=== PATIENT | female | born 1995 | race Caucasian/White ===

== ENCOUNTER 2017-11-09 06:03 | Day surgery (SDC) | payer BC ==
[~2017-11-09 06:03] MED LIST: Acetaminophen 325 MG Tab PO SCH; Lactated Ringers 1,000 ML IV SCH; Lidocaine 1%/Sod Bicarbonate in NS 8.4% 1 ML Syringe IDERM PRN; Pregabalin 25 MG Cap PO SCH; Sodium Chloride 0.9% 10 ML Syringe FLUSH PRN; oxyCODONE ER 10 MG TAB.ER PO SCH
[2017-11-09] MEDS ORDERED: fentaNYL 250 MCG/5 ML SDV ONE (06:31)
[2017-11-09] MEDS ORDERED: Propofol 200 MG/20 ML SDV ONE ×7 (06:31→08:12)
[2017-11-09] MEDS ORDERED: Midazolam 1 MG/ML 2 ML SDV ONE (06:31)
[2017-11-09] MEDS ORDERED: Ondansetron 4 MG/2 ML SDV ONE (06:33)
[2017-11-09] MEDS ORDERED: Lidocaine 1% 4 ML ONE (06:33)
[2017-11-09] MEDS ORDERED: Dexamethasone 4 MG/ML SDV ONE (06:33)
[2017-11-09] MEDS ORDERED: Rocuronium 50 MG/5 ML Vial ONE ×2 (06:33→08:03)
[2017-11-09] MEDS ORDERED: ceFAZolin 1 GM Vial ONE (06:34)
[2017-11-09] MEDS ORDERED: Scopolamine 1.5 MG Transdermal Patch TRDERM ONE (06:45)
--- NOTE | 2017-11-09 06:47 | PCM.PREANE ---
Preanesthetic Assessment - Procedure Proposed Procedure: Right Hip video arthroscopy - Anesthesia/Transfusion/Family Hx Anesthesia History: Prior Anesthesia Without Reaction Family History of Anesthesia Reaction: No Transfusion History: No Prior Transfusion(s) - Review of Systems General: No Symptoms Pulmonary: No Symptoms Cardiovascular: No Symptoms Gastrointestinal: No Symptoms Neurological: No Symptoms Other: Reports: Anxiety - Physical Assessment NPO Status Date: 11/08/17 NPO Status Time: 19:30 O2 Sat by Pulse Oximetry: 99 Respiratory Rate: 16 Vital Signs: Last Vital Signs Temp 36.6 C 11/09/17 06:10 Pulse 91 11/09/17 06:10 Resp 16 11/09/17 06:10 BP 124/80 11/09/17 06:10 Pulse Ox 99 11/09/17 06:10 Height: 1.78 m Weight: 66.224 kg ASA Class: 1 Mental Status: Alert & Oriented x3 Airway Class: Mallampati = 1 Dentition: Reports: Normal Dentition Thyro-Mental Finger Breadths: 3 Mouth Opening Finger Breadths: 3 ROM/Head Extension: Full Lungs: Clear to Auscultation, Normal Respiratory Effort Cardiovascular: Regular Rate, Regular Rhythm - Lab Values: Laboratory Last Values Urine HCG, Qual Negative (NEGATIVE) 11/09/17 06:05 MRSA (PCR) Negative 10/24/17 12:14 - Allergies Allergies/Adverse Reactions: Allergies Allergy/AdvReac Type Severity Reaction Status Date / Time watermelon Allergy Severe Anaphylactic Verified 11/08/17 13:27 Shock latex Allergy Rash Verified 11/08/17 13:27 Penicillins Allergy Hives Verified 11/08/17 13:27 thieves oil Allergy Anaphylactic Uncoded 11/08/17 13:27 Shock - Blood Blood Available: No Product(s) Available: None - Anesthesia Plan Pre-Op Medication Ordered: None - Acknowledgements Anesthesia Type Planned: General Anesthesia (scopolamine patch ordered, motion sickness) Pt an Appropriate Candidate for the Planned Anesthesia: Yes Alternatives and Risks of Anesthesia Discussed w Pt/Guardian: Yes Pt/Guardian Understands and Agrees with Anesthesia Plan: Yes PreAnesthesia Questionnaire Other HEENT History: lymphectomy right side Cardiovascular History: Reports: None Respiratory History: Reports: None Genitourinary History: Reports: None TOOL CHASER History: Reports: None Musculoskeletal History: Reports: None Neurological History: Reports: None Psychiatric History: Reports: Anxiety Endocrine/Metabolic History: Reports: None Hematologic History: Reports: None Immunologic History: Reports: None Oncologic (Cancer) History: Reports: None Dermatologic History: Reports: None - Infectious Disease History Infectious Disease History: Reports: Mumps - Past Surgical History Head Surgeries/Procedures: Reports: None Cardiovascular Surgical History: Reports: None Respiratory Surgical History: Reports: None GI Surgical History: Reports: Appendectomy Female Surgical History: Reports: None Male Surgical History: Reports: None Endocrine Surgical History: Reports: None Neurological Surgical History: Reports: None Musculoskeletal Surgical History: Reports: None Other Oncologic Surgeries/Procedures: She had a large lymph node apparently resected from the right side of her neck at age 10 months. Diagnosed with tuberculosis avium. She was living in [place] at the time - SUBSTANCE USE Smoking Status *Q: Never Smoker Recreational Drug Use History: No - HOME MEDS Home Medications: Home Meds Fluticasone Propionate [Flonase] 1 spray NASBOTH DAILY PRN 11/08/17 [History] Meloxicam [Mobic] 7.5 mg PO DAILY PRN 11/08/17 [History] Multivitamin [Daily Carol] 1 tab PO DAILY 11/08/17 [History] Norgestimate-Ethinyl Estradiol [Tri-Linyah Tablet] 1 tab PO DAILY 11/08/17 [ History] - CURRENT (IN HOUSE) MEDS Current Meds: Current Medications Acetaminophen (Tylenol) 975 mg PO ONETIME JONNIE Stop: 11/09/17 14:00 Last Admin: 11/09/17 06:44 Dose: 975 mg Epinephrine HCl (Adrenalin) 9 mg .XX ONETIME ONE Stop: 11/09/17 07:31 Lactated Ringer's (Ringers, Lactated) 1,000 mls @ 125 mls/hr IV ASDIRECTED JONNIE Stop: 11/09/17 23:00 Last Admin: 11/09/17 06:25 Dose: 125 mls/hr Lidocaine/Sodium Bicarbonate (Buffered Lidocaine 1% In Ns 8.4%) 0.25 ml IDERM ONETIME PRN PRN Reason: Prior to IV Start Stop: 11/09/17 18:00 Last Admin: 11/09/17 06:25 Dose: 0.25 ml Oxycodone HCl (Oxycontin) 10 mg PO ONETIME JONNIE Stop: 11/09/17 14:00 Last Admin: 11/09/17 06:44 Dose: 10 mg Pregabalin (Lyrica) 50 mg PO ONETIME JONNIE Stop: 11/09/17 14:00 Last Admin: 11/09/17 06:43 Dose: 50 mg Sodium Chloride (Saline Flush) 10 ml FLUSH ASDIRECTED PRN PRN Reason: Keep Vein Open Stop: 11/09/17 18:00 Discontinued Medications Bupivacaine HCl (Marcaine 0.25%) Confirm Administered Dose 30 ml .ROUTE .STK- MED ONE Stop: 11/09/17 06:16 Cefazolin Sodium (Ancef) Confirm Administered Dose 2 gm .ROUTE .STK-MED ONE Stop: 11/09/17 06:35 Dexamethasone (Dexamethasone) Confirm Administered Dose 4 mg .ROUTE .STK-MED ONE Stop: 11/09/17 06:34 Epinephrine HCl (Adrenalin) 3 mg .XX ONETIME ONE Stop: 11/09/17 08:01 Fentanyl (Sublimaze) Confirm Administered Dose 250 mcg .ROUTE .STK-MED ONE Stop: 11/09/17 06:32 Lidocaine HCl (Xylocaine-Mpf 1%) Confirm Administered Dose 4 mls @ as directed .ROUTE .STK-MED ONE Stop: 11/09/17 06:34 Midazolam HCl (Versed 1 Mg/Ml) Confirm Administered Dose 2 mg .ROUTE .STK-MED ONE Stop: 11/09/17 06:32 Ondansetron HCl (Zofran) Confirm Administered Dose 4 mg .ROUTE .STK-MED ONE Stop: 11/09/17 06:34 Propofol (Diprivan 20 Ml) Confirm Administered Dose 200 mg .ROUTE .STK-MED ONE Stop: 11/09/17 06:32 Rocuronium [place] (Zemuron) Confirm Administered Dose 50 mg .ROUTE .STK-MED ONE Stop: 11/09/17 06:34
[2017-11-09] MEDS ORDERED: EPINEPHrine 1 MG/ML 30 ML MDV ONE ×2 (07:30→08:00)
[2017-11-09] MEDS ORDERED: HYDROmorphone 0.5 MG/0.5 ML Syringe ONE ×2 (08:16)
[2017-11-09] MEDS: Bupivacaine 0.25% 30 ML SDV ONE ×2 (08:24→09:33)
[2017-11-09] MEDS ORDERED: Ketorolac 30 MG/ML SDV ONE (09:57)
--- NOTE | 2017-11-09 09:59 | CR ---
Right hip: Multiple fluoroscopic spot views were obtained utilizing the C-arm. Study shows arthroscopic surgery within the right hip. Fluoroscopy time given as 98.3 seconds. Impression: 1. Procedural study. Diagnostic code #2
[2017-11-09] MEDS ORDERED: Meperidine PF 50 MG/ML Syringe IVPUSH PRN (10:02)
[2017-11-09] MEDS ORDERED: fentaNYL 100 MCG/2 ML SDV IVPUSH PRN (10:02)
[2017-11-09] MEDS ORDERED: diphenhydrAMINE 50 MG/ML SDV IVPUSH PRN (10:02)
[2017-11-09] MEDS ORDERED: Ondansetron 4 MG/2 ML SDV IVPUSH PRN (10:02)
[2017-11-09] MEDS ORDERED: HYDROmorphone 0.5 MG/0.5 ML Syringe IVPUSH PRN (10:06)
--- NOTE | 2017-11-09 10:07 | PCM.POSTAN ---
POST ANESTHESIA ASSESSMENT - MENTAL STATUS Mental Status: Somnolent - VITAL SIGNS Pulse Rate: 72 SaO2: 97 Resp Rate: 13 Blood Pressure: 112/60 Temperature: 36.4 C - RESPIRATORY Respiratory Status: Respiratory Rate WNL, Airway Patent, O2 Saturation Stable, Supplemental Oxygen - CARDIOVASCULAR CV Status: Pulse Rate WNL, Blood Pressure Stable - GASTROINTESTINAL GI Status: No Symptoms - PAIN Pain Score: 0 - POST OP HYDRATION Hydration Status: Adequate & Stable
[2017-11-09 10:54] VITALS: BP 119/84
--- NOTE | 2017-11-09 21:39 | PCM.OPNOTE ---
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
--- NOTE | 2017-11-09 23:33 | OR ---
DATE OF OPERATION: 11/09/2017 SURGEON: Tanner Partida MD OPERATIVE PROCEDURE: Right hip video arthroscopy with labral debridement, labral repair and acetabuloplasty. PREOPERATIVE DIAGNOSIS: Right hip femoral acetabular impingement, labral tear. 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 ANESTHESIA: Technique, general endotracheal intubation with local. ANESTHESIA PROVIDER: Isacc Frances. DOPE WEIGH OPERATOR: Nanci Robles PA-C. ESTIMATED BLOOD LOSS: 5 mL. COMPLICATIONS: None. CONDITION: Stable. DESCRIPTION OF PROCEDURE: The patient was identified in the preop holding area. Proper site was marked and identified by the surgeon. The patient was taken back to the operating theater where after adequate anesthesia, the patient's left lower extremity was placed in a traction boot and gross traction was applied. Right lower extremity was then placed in a traction boot and gross traction was applied. The head was placed and well padded. At this time, the patient's hip was noted to be in neutral alignment and the hip was slightly adducted at this time and time-out was performed. The patient received 2 g of IV Ancef. With the use of a C-arm fluoroscopy, 4 turns of traction was applied. There was noted to be a vacuum effect, so the joint was not opening. At this time, the spinal needle was used for decompression. At this time, the joint did open up, but the patient was noted to have severe lateral overhang as well as anterior overhang of the acetabulum, so it was very difficult to get that decompression done. Once it was done, we did have room for working portal, the lateral working portal was then created with the use of a spinal needle and a Nitinol wire and a viewing cannula was then placed. Under direct visualization and C-arm fluoroscopy, anterior lateral portal was created with the use of a spinal needle and Nitinol wire was placed again. A working portal was then placed a traction. A Samurai blade was then used to connect the anterior lateral portal as well as lateral portal, with takedown of the capsule. Traction stitch was applied to the superior capsule. At this time, the patient was noted to have severe fraying and degeneration noted of the entire labrum with significant delamination of the labral chondral junction all the way around laterally. At this time, cautery and resector were used to define acetabular rim. There was noted to be a very thin labrum that was severely frayed all the way from the anterior portion to the lateral portion. Once this was taken down, we had a very good visualization of the entire rim of the acetabulum and starting in the anterior medial portion of the rim all the way to the lateral portion, we were able under direct visualization as well as fluoroscopy able to do a significant acetabuloplasty of roughly 8-10 mm. At this time, we did attempt labral repair, once we were inside knotless [place] 2.3 curved anchor was placed medially, the suture was passed, the anchor was then placed and tension was applied. It was noted to have good watertight repair on that medial side. Next, this was attempted again more towards the straight anterior portion, but it just cut through the very frayed labrum. We did try 1 more time, but it cut through again, the patient's labrum was noted to be severely degenerated at this time secondary to the patient noted to have a large area of chondromalacia on the femoral head of grade 3/4 as well as the severe delamination of acetabulum. It was decided that we would not do a reconstruction of the labrum secondary to the high rate of failure in this patient's circumstances. At this time, the labrum was debrided and attention was turned to the femur. After the acetabuloplasty was done all traction was taken off and under C-arm fluoroscopy as well as direct visualization there was noted to be no significant asphericity of the femoral head with no significant CAM lesion and there was no sign of impingement under direct visualization with the patient being brought into flexion, adduction and internal rotation with no asphericity of the femoral head noted. At this time, excess saline was drained from the hip, 0.25% Marcaine was injected around the ASIS and the portal incisions were closed. The patient's had a sterile soft dressing applied and sent to PACU in stable condition. OPERATION PERFORMED: DAYNA /[id number]
== END 2017-11-09 12:10 | disposition home or self-care (01) ==
LOC: JD.SDS 06:03
PROVIDERS: ATTEND Orthopaedic Surgery
DX: M25.851 Other specified joint disorders, right hip (principal); S73.101A Unspecified sprain of right hip, initial encounter; M94.251 Chondromalacia, right hip; F41.9 Anxiety disorder, unspecified; Z88.0 Allergy status to penicillin; Z91.040 Latex allergy status; Z91.048 Other nonmedicinal substance allergy status; Z79.899 Other long term (current) drug therapy; Z91.018 Allergy to other foods
CPT/HCPCS: 01210; 76000; 76000-26; 81025; 87641; A9270-GY; C1776; J0171; J0690; J1100; J1170; J1885; J2001; J2175; J2250; J2405; J2704; J3010; J3490; J7120

== ENCOUNTER 2018-05-11 09:08 | Emergency (ER) | payer BC, OTHER ==
[2018-05-11 09:19] VITALS: BP 111/79
[2018-05-11] MEDS ORDERED: Sodium Chloride 0.9% 10 ML Syringe FLUSH PRN (09:25)
[2018-05-11] MEDS ORDERED: Prochlorperazine 10 MG/2 ML SDV IVPUSH ONE (09:26)
[2018-05-11] MEDS ORDERED: diphenhydrAMINE 50 MG/ML SDV IVPUSH ONE (09:27)
[2018-05-11] MEDS ORDERED: Ketorolac 30 MG/ML SDV IVPUSH ONE (09:27)
--- NOTE | 2018-05-11 10:45 | EDM.PDOC ---
ED HPI GENERAL MEDICAL PROBLEM - General Chief Complaint: Neurological Problem Stated Complaint: NUMBNESS LT SIDE, WEAKNESS, BLURRED VISION Time Seen by Provider: 05/11/18 09:18 Source of Information: Reports: Patient History Limitations: Reports: No Limitations - History of Present Illness INITIAL COMMENTS - FREE TEXT/NARRATIVE: The patient presents with a headache and left face and arm numbness. She says the numbness and mild weakness started last night. It was in her left face and left arm. She then woke up with a headache this morning. The headache is on both sides. She has been having more headaches the past year. She suspects they are migraines but she has never been evaluated for them. She recently had hip surgery. She has no fever, chills, cough, chest pain, or shortness of breath. She has never had numbness like this before. She as a little nausea with this. She had some blurred vision last night but that is better. Onset: Sudden Duration: Day(s): (Last night) Severity: Moderate Improves with: Reports: None Worsens with: Reports: None Associated Symptoms: Reports: Headaches, Nausea/Vomiting. Denies: Chest Pain, Cough, Fever/Chills, Shortness of Breath Treatments BATCH UNIT TREATER: Reports: Other (see below) Other Treatments BATCH UNIT TREATER: macrobid around 0800 frontal headache Pain Score (Numeric/FACES): 6 - Related Data Allergies Allergy/AdvReac Type Severity Reaction Status Date / Time watermelon Allergy Severe Anaphylactic Verified 05/11/18 09:19 Shock latex Allergy Rash Verified 05/11/18 09:19 Penicillins Allergy Hives Verified 05/11/18 09:19 thieves oil Allergy Anaphylactic Uncoded 05/11/18 09:19 Shock Home Meds: Home Meds Nitrofurantoin Monohyd/M-Cryst [Macrobid 100 mg Capsule] 100 mg PO BID 05/11/18 [History] Past Medical History Other HEENT History: lymphectomy right side Cardiovascular History: Reports: None Respiratory History: Reports: None Genitourinary History: Reports: None RIDE OPERATOR History: Reports: None Musculoskeletal History: Reports: None Neurological History: Reports: None Psychiatric History: Reports: Anxiety Endocrine/Metabolic History: Reports: None Hematologic History: Reports: None Immunologic History: Reports: None Oncologic (Cancer) History: Reports: None Dermatologic History: Reports: None - Infectious Disease History Infectious Disease History: Reports: Mumps - Past Surgical History Head Surgeries/Procedures: Reports: None Cardiovascular Surgical History: Reports: None Respiratory Surgical History: Reports: None GI Surgical History: Reports: Appendectomy Female Surgical History: Reports: None Endocrine Surgical History: Reports: None Neurological Surgical History: Reports: None Musculoskeletal Surgical History: Reports: None Other Oncologic Surgeries/Procedures: She had a large lymph node apparently resected from the right side of her neck at age 10 months. Diagnosed with tuberculosis avium. She was living in [place] at the time Social & Family History - Family History Family Medical History: Noncontributory - Tobacco Use Smoking Status *Q: Never Smoker - Caffeine Use Caffeine Use: Reports: Coffee, Soda - Living Situation & Occupation Living situation: Reports: Single Occupation: Employed ED ROS GENERAL - Review of Systems Review Of Systems: See Below Constitutional: Reports: No Symptoms HEENT: Reports: No Symptoms Respiratory: Reports: No Symptoms Cardiovascular: Reports: No Symptoms Endocrine: Reports: No Symptoms GI/Abdominal: Reports: Nausea. Denies: Abdominal Pain, Vomiting : Reports: No Symptoms Musculoskeletal: Reports: No Symptoms Skin: Reports: No Symptoms Neurological: Reports: Headache, Numbness (Left face and arm) ED EXAM, NEURO - Physical Exam Exam: See Below Exam Limited By: No Limitations General Appearance: Alert, No Apparent Distress Ears: Normal External Exam Nose: Normal Inspection Head Exam: Atraumatic, Normocephalic Neck: Normal Inspection, Supple, Non-Tender Respiratory/Chest: No Respiratory Distress, Lungs Clear, Normal Breath Sounds Cardiovascular: Regular Rate, Rhythm, No Edema, No Murmur GI/Abdominal: Soft, Non-Tender, No Organomegaly, No Mass Neurological: Alert, Oriented x 3, Other (Equal strength. Gross numbness to the left face and left arm.) EKG INTERPRETATION EKG Date: 05/11/18 Time: 09:31 Rhythm: NSR Rate (Beats/Min): 85 [place]: Normal P-Wave: Present QRS: Normal ST-T: Normal QT: Normal Course - Vital Signs Last Recorded V/S: Last Vital Signs Temp 98.7 F 05/11/18 09:10 Pulse 93 05/11/18 09:10 Resp 18 05/11/18 09:10 BP 111/79 05/11/18 09:10 Pulse Ox 18 L 05/11/18 09:10 - Orders/Labs/Meds Orders: Active Orders 24 hr Category Date Time Status Cardiac Monitoring [RC] . DIRECTED Care 05/11/18 09:25 Active EKG Documentation Completion [RC] STAT Care 05/11/18 09:25 Active Peripheral IV Care [RC] . DIRECTED Care 05/11/18 09:25 Active Sodium Chloride 0.9% [Saline Flush] Med 05/11/18 09:25 Active 10 ml FLUSH ASDIRECTED PRN Peripheral IV Insertion Adult [OM.PC] Stat Oth 05/11/18 09:25 Ordered Medication Orders Sodium Chloride (Saline Flush) 10 ml FLUSH ASDIRECTED PRN PRN Reason: Keep Vein Open Last Admin: 05/11/18 09:49 Dose: 10 ml Labs: Laboratory Tests 05/11/18 05/11/18 05/11/18 Range/Units 09:45 09:45 09:45 WBC 6.57 (3.98-10.04) K/mm3 RBC 4.68 (3.98-5.22) M/mm3 Hgb 13.4 (11.2-15.7) gm/L Hct 38.5 (34.1-44.9) % MCV 82.3 (79.4-94.8) fl MCH 28.6 (25.6-32.2) pg MCHC 34.8 (32.2-35.5) g/dl RDW Std Deviation 36.5 (36.4-46.3) fL Plt Count 123 L (182-369) K/mm3 MPV 12.0 (9.4-12.3) fl Neut % (Auto) 67.4 (34.0-71.1) % Lymph % (Auto) 21.6 (19.3-51.7) % [place] % (Auto) 7.8 (4.7-12.5) % Eos % (Auto) 2.7 (0.7-5.8) Baso % (Auto) 0.3 (0.1-1.2) % Neut # (Auto) 4.43 (1.56-6.13) K/mm3 Lymph # (Auto) 1.42 (1.18-3.74) K/mm3 [place] # (Auto) 0.51 H (0.24-0.36) K/mm3 Eos # (Auto) 0.18 (0.04-0.36) K/mm3 Baso # (Auto) 0.02 (0.01-0.08) K/mm3 Sodium 142 (136-145) mEq/L Potassium 3.8 (3.5-5.1) mEq/L Chloride 106 (98-107) mEq/L Carbon Dioxide 27 (21-32) mEq/L Anion Gap 12.8 (5-15) BUN 12 (7-18) mg/dL Creatinine 0.8 (0.55-1.02) mg/dL Est Cr Clr Drug Dosing 116.25 mL/min Estimated GFR (MDRD) > 60 (>60) mL/min BUN/Creatinine Ratio 15.0 (14-18) Glucose 96 (74-106) mg/dL Calcium 9.3 (8.5-10.1) mg/dL Magnesium 2.1 (1.8-2.4) mg/dl Total Bilirubin 0.6 (0.2-1.0) mg/dL AST 18 (15-37) U/L ALT 20 (14-59) U/L Alkaline Phosphatase 88 (46-116) U/L Troponin I < 0.017 (0.00-0.056) ng/mL Total Protein 7.3 (6.4-8.2) g/dl Albumin 4.2 (3.4-5.0) g/dl Globulin 3.1 gm/dL Albumin/Globulin Ratio 1.4 (1-2) HCG, Qual Negative (NEGATIVE) Meds: Medications Generic Name Dose Route Start Last Admin Trade Name Freq PRN Reason Stop Dose Admin Sodium Chloride 10 ml 05/11/18 09:25 05/11/18 09:49 Saline Flush FLUSH 10 ml ASDIRECTED PRN Administration Keep Vein Open Discontinued Medications Generic Name Dose Route Start Last Admin Trade Name Freq PRN Reason Stop Dose Admin Diphenhydramine HCl 50 mg 05/11/18 09:27 05/11/18 09:50 Benadryl IVPUSH 05/11/18 09:28 50 mg ONETIME ONE Administration Ketorolac Tromethamine 30 mg 05/11/18 09:27 05/11/18 09:49 Toradol IVPUSH 05/11/18 09:28 30 mg ONETIME ONE Administration Prochlorperazine Edisylate 10 mg 05/11/18 09:26 05/11/18 09:48 Compazine IVPUSH 05/11/18 09:27 10 mg ONETIME ONE Administration - Re-Assessments/Exams Free Text/Narrative Re-Assessment/Exam: 05/11/18 10:47 I ordered an IV saline lock, compazine 10mg IV, toradol 30mg IV, benadryl 50mg IV, EKG, labs and an EKG. Her EKG shows a NSR with no acute changes. Her CBC and CMP look good. Her troponin is negative. I am waiting on the CT of her head. 05/11/18 11:[address] of her head shows nothing acute. She feels better. She is just tired. I feel this was a complex migraine. I wanted to schedule an MRI of her brain but she is very claustrophobic. I will have her follow up with Rosita Santos. Departure - Departure Time of Disposition: 12:00 Disposition: Home, Self-Care 01 Condition: Good Clinical Impression: Migraine Qualifiers: Migraine type: other Status migrainosus presence: without status migrainosus Intractability: not intractable Qualified Code(s): G43.809 - Other migraine, not intractable, without status migrainosus - Discharge Information *PRESCRIPTION DRUG MONITORING PROGRAM REVIEWED*: No *COPY OF PRESCRIPTION DRUG MONITORING REPORT IN PATIENT TERELL: No Referrals: Nataliia Santos PA-C [Primary Care Provider] - 1 Week Forms: ED Department Discharge Additional Instructions: Go home and rest in a quit dark room. I feel this is a complex migraine. I would like you to follow up with Rosita Santos within a week and please return if you are worse. - My Orders Last 24 Hours: My Active Orders 05/11/18 09:25 Cardiac Monitoring [RC] . DIRECTED EKG Documentation Completion [RC] STAT Peripheral IV Care [RC] . DIRECTED Sodium Chloride 0.9% [Saline Flush] 10 ml FLUSH ASDIRECTED PRN Peripheral IV Insertion Adult [OM.PC] Stat - Assessment/Plan Last 24 Hours: My Active Orders 05/11/18 09:25 Cardiac Monitoring [RC] . DIRECTED EKG Documentation Completion [RC] STAT Peripheral IV Care [RC] . DIRECTED Sodium Chloride 0.9% [Saline Flush] 10 ml FLUSH ASDIRECTED PRN Peripheral IV Insertion Adult [OM.PC] Stat
--- NOTE | 2018-05-11 11:40 | CT ---
Head CT Technique: Multiple axial sections through the brain were obtained. Intravenous contrast was not utilized. Comparison: No prior intracranial imaging is available. Findings: Ventricles along with basal cisterns and sulci over the convexities are within normal limits for the patient's age. No abnormal parenchymal densities are seen. No evidence of intracranial hemorrhage. No midline shift or mass effect is seen. Bone window settings were reviewed which show the visualized sinuses to appear clear. No acute calvarial abnormality is appreciated. Impression: 1. Nothing acute is appreciated on noncontrast head CT exam. Diagnostic code #1
== END 2018-05-11 12:15 | disposition home or self-care (01) ==
LOC: JD.ED 09:08
DX: G43.809 Other migraine, not intractable, without status migrainosus (principal); Z91.018 Allergy to other foods; Z91.040 Latex allergy status; Z88.0 Allergy status to penicillin; Z79.899 Other long term (current) drug therapy
CPT/HCPCS: 36415; 70450; 80053; 83735; 84484; 84703; 85025; 93005; 96374; 96375; 99284; J0780; J1200; J1885

== ENCOUNTER 2018-09-13 17:30 | Observation (INO) | payer BC, OTHER, SELFPAY ==
[2018-09-13] MEDS ORDERED: Dicyclomine 10 MG Cap PO ONE (18:08)
--- NOTE | 2018-09-13 18:30 | EDM.PDOC ---
ED HPI GENERAL MEDICAL PROBLEM - General Chief Complaint: Abdominal Pain Stated Complaint: UPPER ABDOMEN PAIN Time Seen by Provider: 09/13/18 17:37 Source of Information: Reports: Patient History Limitations: Reports: No Limitations - History of Present Illness INITIAL COMMENTS - FREE TEXT/NARRATIVE: 23 yo F h/o IBS comes in today for epigastric pain that started this morning at work around 8am. She states it was a random onset, 8-9/10 sharp constant epigastric pain. She has not had pain like this before. She c/o anxiety, SOB, nausea, diaphoresis when pain first started. She denies any F/C, vomiting, difficulty/pain with eating, diarrhea, chest pain, dysuria. Standing, moving and speed bumps make it worse, laying down makes it better. She states that she took Meloxicam at home with breakfast this morning with some relief. She has not had a change in eating habits recently, but did have some diarrhea last night d/t eating sour cream. Today she has had multiple normal BMs, she usually has about 2-3 per day. She did eat OK earlier this morning and has only had milk this afternoon. She has no h/o GERD, smoking or alcohol use. No endoscopy. She had an appendectomy about 10 years ago. Still has her gallbladder. She is not currently , has not had sex in a few months, LNMP was last Monday. PCP is Nataliia Santos PA-C. Upper Abdomen Pain Score (Numeric/FACES): 7 - Related Data Allergies Allergy/AdvReac Type Severity Reaction Status Date / Time watermelon Allergy Severe Anaphylactic Verified 05/11/18 09:19 Shock latex Allergy Rash Verified 05/11/18 09:19 Penicillins Allergy Hives Verified 05/11/18 09:19 thieves oil Allergy Anaphylactic Uncoded 05/11/18 09:19 Shock Home Meds: Home Meds Fluticasone Propionate [Flonase Allergy Relief] 1 applic INH DAILY 09/13/18 [ History] Multivitamin [Multivitamins] 1 tab PO DAILY 09/13/18 [History] Past Medical History Other HEENT History: lymphectomy right side Cardiovascular History: Reports: None Respiratory History: Reports: None Genitourinary History: Reports: None RAW HIDE TRIMMER History: Reports: None Musculoskeletal History: Reports: None Neurological History: Reports: None Psychiatric History: Reports: Anxiety Endocrine/Metabolic History: Reports: None Hematologic History: Reports: None Immunologic History: Reports: None Oncologic (Cancer) History: Reports: None Dermatologic History: Reports: None - Infectious Disease History Infectious Disease History: Reports: Mumps - Past Surgical History Head Surgeries/Procedures: Reports: None Cardiovascular Surgical History: Reports: None Respiratory Surgical History: Reports: None GI Surgical History: Reports: Appendectomy Female Surgical History: Reports: None Endocrine Surgical History: Reports: None Neurological Surgical History: Reports: None Musculoskeletal Surgical History: Reports: None Other Oncologic Surgeries/Procedures: She had a large lymph node apparently resected from the right side of her neck at age 10 months. Diagnosed with tuberculosis avium. She was living in [place] at the time Social & Family History - Family History Family Medical History: Noncontributory - Tobacco Use Smoking Status *Q: Never Smoker - Caffeine Use Caffeine Use: Reports: Coffee - Recreational Drug Use Recreational Drug Type: Reports: Marijuana/Hashish - Living Situation & Occupation Living situation: Reports: Single Occupation: Employed ED ROS GENERAL - Review of Systems Review Of Systems: See Below Constitutional: Reports: Chills (when pain first started this AM). Denies: Fever HEENT: Reports: No Symptoms Respiratory: Reports: Shortness of Breath (when pain first started this AM). Denies: Pleuritic Chest Pain, Cough Cardiovascular: Reports: No Symptoms. Denies: Chest Pain Endocrine: Reports: No Symptoms GI/Abdominal: Reports: Abdominal Pain (epigastric), Diarrhea (last night), Nausea (when pain first started this AM). Denies: Black Stool, Bloody Stool, Constipation, Vomiting : Reports: No Symptoms. Denies: Irregular Menses Musculoskeletal: Reports: No Symptoms Skin: Reports: No Symptoms Neurological: Reports: No Symptoms Psychiatric: Reports: Anxiety ED EXAM, GI/ABD - Physical Exam Exam: See Below Exam Limited By: No Limitations General Appearance: Alert, WD/WN, Anxious Eyes: Bilateral: Normal Appearance, EOMI Ears: Normal External Exam, Hearing Grossly Normal Throat/Mouth: Normal Inspection, Normal Lips, Normal Teeth, Normal Gums, Normal Oropharynx, Normal Voice, No Airway Compromise Neck: Normal Inspection, Supple, Non-Tender, Full Range of Motion Respiratory/Chest: No Respiratory Distress, Lungs Clear, Normal Breath Sounds, No Accessory Muscle Use, Chest Non-Tender Cardiovascular: Normal Peripheral Pulses, Regular Rate, Rhythm, No Edema, No Gallop, No JVD, No Murmur, No Rub GI/Abdominal Exam: Soft, No Organomegaly, No Distention, No Abnormal Bruit, No Mass, Pelvis Stable, Tender (epigastric region), Abnormal Bowel Sounds ( hyperactive). No: Guarding, Rigid, Rebound Back Exam: Normal Inspection, Full Range of Motion, NT Neurological: Alert, Oriented, CN II-XII Intact, Normal Cognition, Normal Gait, Normal Reflexes, No Motor/Sensory Deficits Psychiatric: Anxious Skin Exam: Warm, Dry, Intact, Normal Color, No Rash Course - Vital Signs Last Recorded V/S: Last Vital Signs Temp 98.0 F 09/13/18 17:43 Pulse 89 09/13/18 17:43 Resp 20 09/13/18 17:43 BP 121/72 09/13/18 17:43 Pulse Ox 100 09/13/18 17:43 - Orders/Labs/Meds Orders: Active Orders 24 hr Category Date Time Status Admission Status [Patient Status] [ADT] Routine ADT 09/13/18 20:12 Active Abdomen 1V Upright [CR] Stat Exams 09/13/18 18:08 Taken Abdomen Pelvis w Cont [CT] Stat Exams 09/13/18 19:51 Taken Sodium Chloride 0.9% [Saline Flush] Med 09/13/18 21:12 Active 10 ml FLUSH ONETIME PRN Code Status [Resuscitation Status] Stat Resus Stat 09/13/18 20:14 Ordered Medication Orders Sodium Chloride (Saline Flush) 10 ml FLUSH ONETIME PRN PRN Reason: IV Flush Last Admin: 09/13/18 21:58 Dose: 10 ml Labs: Laboratory Tests 09/13/18 09/13/18 09/13/18 Range/Units 18:22 18:22 18:22 WBC 10.32 H (3.98-10.04) K/mm3 RBC 4.74 (3.98-5.22) M/mm3 Hgb 13.7 (11.2-15.7) gm/L Hct 39.5 (34.1-44.9) % MCV 83.3 (79.4-94.8) fl MCH 28.9 (25.6-32.2) pg MCHC 34.7 (32.2-35.5) g/dl RDW Std Deviation 36.8 (36.4-46.3) fL Plt Count 120 L (182-369) K/mm3 MPV 11.7 (9.4-12.3) fl Neut % (Auto) 72.8 H (34.0-71.1) % Lymph % (Auto) 18.9 L (19.3-51.7) % [place] % (Auto) 7.8 (4.7-12.5) % Eos % (Auto) 0.3 L (0.7-5.8) Baso % (Auto) 0.1 (0.1-1.2) % Neut # (Auto) 7.51 H (1.56-6.13) K/mm3 Lymph # (Auto) 1.95 (1.18-3.74) K/mm3 [place] # (Auto) 0.81 H (0.24-0.36) K/mm3 Eos # (Auto) 0.03 L (0.04-0.36) K/mm3 Baso # (Auto) 0.01 (0.01-0.08) K/mm3 Sodium 139 (136-145) mEq/L Potassium 3.8 (3.5-5.1) mEq/L Chloride 105 (98-107) mEq/L Carbon Dioxide 26 (21-32) mEq/L Anion Gap 11.8 (5-15) BUN 13 (7-18) mg/dL Creatinine 0.7 (0.55-1.02) mg/dL Est Cr Clr Drug Dosing 132.85 mL/min Estimated GFR (MDRD) > 60 (>60) mL/min BUN/Creatinine Ratio 18.6 H (14-18) Glucose 97 (74-106) mg/dL Calcium 9.2 (8.5-10.1) mg/dL Total Bilirubin 0.6 (0.2-1.0) mg/dL AST 21 (15-37) U/L ALT 24 (14-59) U/L Alkaline Phosphatase 87 (46-116) U/L C-Reactive Protein (<1.0) mg/dL Total Protein 7.1 (6.4-8.2) g/dl Albumin 4.1 (3.4-5.0) g/dl Globulin 3.0 gm/dL Albumin/Globulin Ratio 1.4 (1-2) Lipase 4708 H (73-393) U/L Urine Color (Yellow) Urine Appearance (Clear) Urine pH (5.0-8.0) Ur Specific [place] (1.005-1.030) Urine Protein (Negative) Urine Glucose (UA) (Negative) Urine Ketones (Negative) Urine Occult Blood (Negative) Urine Nitrite (Negative) Urine Bilirubin (Negative) Urine Urobilinogen (0.2-1.0) Ur Leukocyte Esterase (Negative) Urine RBC (0-5) /hpf Urine WBC (0-5) /hpf Ur Squamous Epith Cells (0-5) /hpf Amorphous Sediment (NOT SEEN) /hpf Urine Bacteria (FEW) /hpf Urine Mucus (FEW) /hpf Urine HCG, Qual (NEGATIVE) H. pylori IgG Antibody Negative (NEGATIVE) 09/13/18 09/13/18 09/13/18 Range/Units 18:25 18:34 18:34 WBC (3.98-10.04) K/mm3 RBC (3.98-5.22) M/mm3 Hgb (11.2-15.7) gm/L Hct (34.1-44.9) % MCV (79.4-94.8) fl MCH (25.6-32.2) pg MCHC (32.2-35.5) g/dl RDW Std Deviation (36.4-46.3) fL Plt Count (182-369) K/mm3 MPV (9.4-12.3) fl Neut % (Auto) (34.0-71.1) % Lymph % (Auto) (19.3-51.7) % [place] % (Auto) (4.7-12.5) % Eos % (Auto) (0.7-5.8) Baso % (Auto) (0.1-1.2) % Neut # (Auto) (1.56-6.13) K/mm3 Lymph # (Auto) (1.18-3.74) K/mm3 [place] # (Auto) (0.24-0.36) K/mm3 Eos # (Auto) (0.04-0.36) K/mm3 Baso # (Auto) (0.01-0.08) K/mm3 Sodium (136-145) mEq/L Potassium (3.5-5.1) mEq/L Chloride (98-107) mEq/L Carbon Dioxide (21-32) mEq/L Anion Gap (5-15) BUN (7-18) mg/dL Creatinine (0.55-1.02) mg/dL Est Cr Clr Drug Dosing mL/min Estimated GFR (MDRD) (>60) mL/min BUN/Creatinine Ratio (14-18) Glucose (74-106) mg/dL Calcium (8.5-10.1) mg/dL Total Bilirubin (0.2-1.0) mg/dL AST (15-37) U/L ALT (14-59) U/L Alkaline Phosphatase (46-116) U/L C-Reactive Protein 0.5 (<1.0) mg/dL Total Protein (6.4-8.2) g/dl Albumin (3.4-5.0) g/dl Globulin gm/dL Albumin/Globulin Ratio (1-2) Lipase (73-393) U/L Urine Color Light yellow (Yellow) Urine Appearance Slt cloudy H (Clear) Urine pH 7.5 (5.0-8.0) Ur Specific [place] 1.020 (1.005-1.030) Urine Protein Trace H (Negative) Urine Glucose (UA) Negative (Negative) Urine Ketones Trace H (Negative) Urine Occult Blood Negative (Negative) Urine Nitrite Negative (Negative) Urine Bilirubin Negative (Negative) Urine Urobilinogen 0.2 (0.2-1.0) Ur Leukocyte Esterase Negative (Negative) Urine RBC 0-5 (0-5) /hpf Urine WBC 0-5 (0-5) /hpf Ur Squamous Epith Cells 0-5 (0-5) /hpf Amorphous Sediment Moderate H (NOT SEEN) /hpf Urine Bacteria Few (FEW) /hpf Urine Mucus Not seen (FEW) /hpf Urine HCG, Qual Negative (NEGATIVE) H. pylori IgG Antibody (NEGATIVE) Meds: Medications Generic Name Dose Route Start Last Admin Trade Name Freq PRN Reason Stop Dose Admin Sodium Chloride 10 ml 09/13/18 21:12 09/13/18 21:58 Saline Flush FLUSH 10 ml ONETIME PRN Administration IV Flush Discontinued Medications Generic Name Dose Route Start Last Admin Trade Name Freq PRN Reason Stop Dose Admin Diatrizoate Meglum/Diatrizoate Sod 90 ml 09/13/18 21:12 09/13/18 21:57 Gastrografin 37% PO 09/13/18 21:13 90 ml ONETIME ONE Administration Dicyclomine HCl 10 mg 09/13/18 18:08 09/13/18 18:18 Bentyl PO 09/13/18 18:09 10 mg ONETIME ONE Administration Sodium Chloride 1,000 mls @ 999 mls/hr 09/13/18 19:54 09/13/18 20:06 Normal Saline IV 09/13/18 20:54 999 mls/hr ONETIME ONE Administration Iohexol 100 ml 09/13/18 21:11 09/13/18 21:57 Omnipaque-300 IVPUSH 09/13/18 21:12 100 ml ONETIME ONE Administration - Re-Assessments/Exams Free Text/Narrative Re-Assessment/Exam: 09/13/18 18:22 Ordered CBC, CMP, Lipase, H Pylori, UA, HCG Abdominal Xray Bentyl 09/13/18 19:52 CBC shows slightly elevated WBC at 10.32, Neut 72.8% CMP WNL Lipase elevated at 4708--> likely pancreatitis, unclear cause, will order CT abdomen, Start 1L bolus IV NS UA negative for UTI HCG negative H pylori negative Abdominal Xray reviewed by Dr. Lopez and myself- nothing acute seen, some constipation. 09/13/18 20:05 Discussed case with hospitalist Dr. Cooley and he has accepted the patient for acute pancreatitis. 09/13/18 22:55 vRad reads as Pancreatitis, nothing else acute seen at this time. Will admit now that the report back. Departure - Departure Time of Disposition: 22:56 Disposition: Refer to Observation Condition: Fair Clinical Impression: Acute pancreatitis Qualifiers: Pancreatitis type: unspecified pancreatitis type Acute pancreatitis complication: unspecified Qualified Code(s): K85.90 - Acute pancreatitis without necrosis or infection, unspecified - Discharge Information *PRESCRIPTION DRUG MONITORING PROGRAM REVIEWED*: Not Applicable *COPY OF PRESCRIPTION DRUG MONITORING REPORT IN PATIENT TERELL: Not Applicable Referrals: Nataliia Santos PA-C [Primary Care Provider] - Forms: ED Department Discharge - My Orders Last 24 Hours: My Active Orders 09/13/18 18:08 Abdomen 1V Upright [CR] Stat 09/13/18 19:51 Abdomen Pelvis w Cont [CT] Stat 09/13/18 20:12 Admission Status [Patient Status] [ADT] Routine 09/13/18 20:14 Code Status [Resuscitation Status] Stat 09/13/18 21:12 Sodium Chloride 0.9% [Saline Flush] 10 ml FLUSH ONETIME PRN - Assessment/Plan Last 24 Hours: My Active Orders 09/13/18 18:08 Abdomen 1V Upright [CR] Stat 09/13/18 19:51 Abdomen Pelvis w Cont [CT] Stat 09/13/18 20:12 Admission Status [Patient Status] [ADT] Routine 09/13/18 20:14 Code Status [Resuscitation Status] Stat 09/13/18 21:12 Sodium Chloride 0.9% [Saline Flush] 10 ml FLUSH ONETIME PRN
[2018-09-13] MEDS ORDERED: Sodium Chloride 0.9% 1,000 ML IV ONE (19:54)
[2018-09-13] MEDS ORDERED: Iohexol 647 MG/ML 100 ML Bottle IVPUSH ONE (21:11)
[2018-09-13] MEDS ORDERED: Diatrizoate Meglumine/Diatrizoate Sodium 37% 120 ML Bottle PO ONE (21:12)
[2018-09-13] MEDS ORDERED: Sodium Chloride 0.9% 10 ML Syringe FLUSH PRN (21:12)
[2018-09-13] MEDS ORDERED: Sodium Chloride 0.9% 1,000 ML IV SCH (23:45)
[2018-09-13] MEDS ORDERED: Acetaminophen 325 MG Tab PO PRN (23:58)
[2018-09-13] MEDS ORDERED: Acetaminophen/HYDROcodone 325-5 MG Tab PO PRN (23:58)
[2018-09-13] MEDS ORDERED: HYDROmorphone 0.5 MG/0.5 ML Syringe IVPUSH PRN (23:58)
[2018-09-13] MEDS ORDERED: Ondansetron 4 MG/2 ML SDV IVPUSH PRN (23:58)
--- NOTE | 2018-09-14 06:08 | CR ---
Abdomen: Upright view of the abdomen was obtained. Comparison: No prior abdominal imaging. Bowel gas pattern appears normal. No free air is seen. Bony structures show slight scoliosis. Phleboliths are noted within the pelvis. Vague density is noted within the right lower abdomen possibly due to anastomotic sutures. Impression: 1. Incidental findings. Nothing acute is appreciated. Diagnostic code #2
--- NOTE | 2018-09-14 06:35 | PCM.HP ---
H&P History of Present Illness - General Date of Service: 09/14/18 Admit Problem/Dx: Admission Diagnosis/Problem Admission Diagnosis/Problem Pancreatitis Source of Information: Patient, Provider, RN, RN Notes Reviewed History Limitations: Reports: No Limitations - History of Present Illness Initial Comments - Free Text/Narative: Kitty Tam is a 23 yo female who presented to our ED on 09/13/18 with upper abdominal pain which started earlier in the morning around 8 AM. She states was a sudden onset 8-9 out 10 sharp constant epigastric pain. She has never had pain like this before. Denies any anxiety, shortness of breath, nausea, diaphoresis, fever, chills, vomiting, difficulty with eating, pain with eating, diarrhea, chest pain, or dysuria which accompanied the pain. she reports standing, moving, and sputum was negative worse lying down makes it better. She did take meloxicam at home with some relief. Denies any recent changes in eating habits however she did report some diarrhea the night before which she says is due to her sour cream intake. She reports multiple BMs throughout the day but states she usually has about 2-3 per day. She ate okay in the morning but is only been able to take milk and the afternoon. Denies any history of GERD, smoking, or alcohol use. She has never had endoscopy performed. She had appendectomy about 10 years prior and still has her gallbladder. She's not currently and has not had sex in several months. Her last menstrual period was Monday. In the ED temperature was 98F. Pulse 89. Respirations 20. Blood pressure 121 /72. Pulse ox 100%. Labs are obtained: CBC is very mildly elevated at 10.32. Hemoglobin 13.7. Hematocrit 39.5. She is normocytic. Pulse are low at 120, 000. Jaspal's are elevated at 72.8%. Sodium was 139. Potassium 3.8. Chloride 105. Copaxone 26. Anion gap 11.8. BUN is 13. Creatinine 0.7. EGFR greater than 60. Glucose is 97. Calcium 9.2. Bilirubin 0.6. AST is 21, ALT 24, alkaline phosphatase 87. Protein is 7.1. Albumin 4.1. Lipase is high at /08. H. pylori is negative. CRP is 0.5. HCG is negative. UA is negative however trace protein and moderate amorphus sediment are noted along with trace ketones. Abdominal x-rays obtained and interpreted by Dr. Blanton as " incidental findings. Nothing acute is appreciated. CT of the abdomen and pelvis is obtained and interpreted by [facility] as pancreatitis and nothing else acute seen.she is given 10 mg of Bentyl and a 1 L saline bolus. She carries a history of: right-sided lymphectomy, anxiety, and mumps. 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 she is a full code. Her PCP is Nataliia Mayo PA-C. She is not a smoker. Upper Abdomen Pain Score (Numeric/FACES): 7 - Related Data Allergies/Adverse Reactions: Allergies Allergy/AdvReac Type Severity Reaction Status Date / Time watermelon Allergy Severe Anaphylactic Verified 05/11/18 09:19 Shock latex Allergy Rash Verified 05/11/18 09:19 Penicillins Allergy Hives Verified 05/11/18 09:19 thieves oil Allergy Anaphylactic Uncoded 05/11/18 09:19 Shock Home Medications: Home Meds Fluticasone Propionate [Flonase Allergy Relief] 1 applic INH DAILY 09/13/18 [ History] Multivitamin [Multivitamins] 1 tab PO DAILY 09/13/18 [History] Past Medical History Other HEENT History: lymphectomy right side Cardiovascular History: Reports: None Respiratory History: Reports: None Genitourinary History: Reports: None PYROGLAZER History: Reports: None Musculoskeletal History: Reports: None Neurological History: Reports: Migraines, Other (See Below) Other Neuro History: Motion sickness; migraines with some of her allergies Psychiatric History: Reports: Anxiety Endocrine/Metabolic History: Reports: None Hematologic History: Reports: None Immunologic History: Reports: None Oncologic (Cancer) History: Reports: None Dermatologic History: Reports: None - Infectious Disease History Infectious Disease History: Reports: Mumps - Past Surgical History Head Surgeries/Procedures: Reports: None Cardiovascular Surgical History: Reports: None Respiratory Surgical History: Reports: None GI Surgical History: Reports: Appendectomy Female Surgical History: Reports: None Endocrine Surgical History: Reports: None Neurological Surgical History: Reports: None Musculoskeletal Surgical History: Reports: Other (See Below) Other Musculoskeletal Surgeries/Procedures:: hip scope Other Oncologic Surgeries/Procedures: She had a large lymph node apparently resected from the right side of her neck at age 10 months. Diagnosed with tuberculosis avium. She was living in [place] at the time Social & Family History - Family History Family Medical History: Noncontributory - Tobacco Use Smoking Status *Q: Never Smoker Second Hand Smoke Exposure: No - Caffeine Use Caffeine Use: Reports: Soda - Recreational Drug Use Recreational Drug Use: Yes Drug Use in Last 12 Months: Yes Recreational Drug Type: Reports: Marijuana/Hashish Other Recreational Drug Type: used last week when they were in [facility]. Recreational Drug Use Frequency: Rarely - Living Situation & Occupation Living situation: Reports: Single Occupation: Employed H&P Review of Systems - Review of Systems: Review Of Systems: See Below General: Reports: No Symptoms. Denies: Fever, Chills, Malaise, Weakness, Fatigue HEENT: Reports: No Symptoms. Denies: Sore Throat Pulmonary: Reports: No Symptoms. Denies: Shortness of Breath, Wheezing, Pleuritic Chest Pain, Cough, Sputum Cardiovascular: Reports: No Symptoms. Denies: Chest Pain, Palpitations, Dyspnea on Exertion, Edema Gastrointestinal: Reports: Abdominal Pain (very very mild epigastric region ). Denies: Constipation, Diarrhea, Hematochezia, Melena, Nausea, Vomiting Genitourinary: Reports: No Symptoms Musculoskeletal: Reports: No Symptoms Skin: Reports: No Symptoms. Denies: Cyanosis Psychiatric: Reports: No Symptoms. Denies: Confusion Neurological: Reports: Headache (mild - reports she normally drinks quite a bit of coffee daily ). Denies: Confusion, Dizziness, Numbness, Pre-Existing Deficit , Seizure, Tingling, Trouble Speaking, Difficulty Walking, Weakness, Gait Disturbance Hematologic/Lymphatic: Reports: No Symptoms Immunologic: Reports: No Symptoms Exam - Exam Exam: See Below - Vital Signs Vital Signs: Last Vital Signs Temp 97.9 F 09/14/18 02:36 Pulse 95 09/14/18 02:36 Resp 16 09/14/18 02:36 BP 102/60 09/14/18 02:36 Pulse Ox 99 09/14/18 02:36 Weight: 146 lb 8 oz - Exam General: Alert, Oriented, Cooperative HEENT: Conjunctiva Clear, EACs Clear, EOMI, Hearing Intact, Mucosa Moist & [place] , Nares Patent, Posterior Pharynx Clear, PERRLA Neck: Supple, Trachea Midline Lungs: Clear to Auscultation, Normal Respiratory Effort Cardiovascular: Regular Rate, Regular Rhythm GI/Abdominal Exam: Soft, No Distention, No Abnormal Bruit, Tender (mild epigastric tenderness on palpitation ), Abnormal Bowel Sounds (hyperactive ) (Female) Exam: Deferred Rectal (Female) Exam: Deferred Back Exam: Normal Inspection, Full Range of Motion Extremities: Normal Inspection, Normal Range of Motion, Non-Tender, No Pedal Edema, Normal Capillary Refill Peripheral Pulses: 2+: Radial (L), Radial (R), Dorsalis Pedis (L), Dorsalis Pedis (R) Skin: Warm, Dry, Intact Neurological: Cranial Nerves Intact (grossly ) Neuro Extensive - Mental Status: Alert, Oriented x3, Normal Mood/Affect - Patient Data Lab Results Last 24 hrs: Laboratory Results - last 24 hr 09/13/18 09/13/18 09/13/18 Range/Units 18:22 18:22 18:22 WBC 10.32 H (3.98-10.04) K/mm3 RBC 4.74 (3.98-5.22) M/mm3 Hgb 13.7 (11.2-15.7) gm/L Hct 39.5 (34.1-44.9) % MCV 83.3 (79.4-94.8) fl MCH 28.9 (25.6-32.2) pg MCHC 34.7 (32.2-35.5) g/dl RDW Std Deviation 36.8 (36.4-46.3) fL Plt Count 120 L (182-369) K/mm3 MPV 11.7 (9.4-12.3) fl Neut % (Auto) 72.8 H (34.0-71.1) % Lymph % (Auto) 18.9 L (19.3-51.7) % [place] % (Auto) 7.8 (4.7-12.5) % Eos % (Auto) 0.3 L (0.7-5.8) Baso % (Auto) 0.1 (0.1-1.2) % Neut # (Auto) 7.51 H (1.56-6.13) K/mm3 Lymph # (Auto) 1.95 (1.18-3.74) K/mm3 [place] # (Auto) 0.81 H (0.24-0.36) K/mm3 Eos # (Auto) 0.03 L (0.04-0.36) K/mm3 Baso # (Auto) 0.01 (0.01-0.08) K/mm3 Sodium 139 (136-145) mEq/L Potassium 3.8 (3.5-5.1) mEq/L Chloride 105 (98-107) mEq/L Carbon Dioxide 26 (21-32) mEq/L Anion Gap 11.8 (5-15) BUN 13 (7-18) mg/dL Creatinine 0.7 (0.55-1.02) mg/dL Est Cr Clr Drug Dosing 132.85 mL/min Estimated GFR (MDRD) > 60 (>60) mL/min BUN/Creatinine Ratio 18.6 H (14-18) Glucose 97 (74-106) mg/dL Calcium 9.2 (8.5-10.1) mg/dL Total Bilirubin 0.6 (0.2-1.0) mg/dL AST 21 (15-37) U/L ALT 24 (14-59) U/L Alkaline Phosphatase 87 (46-116) U/L C-Reactive Protein (<1.0) mg/dL Total Protein 7.1 (6.4-8.2) g/dl Albumin 4.1 (3.4-5.0) g/dl Globulin 3.0 gm/dL Albumin/Globulin Ratio 1.4 (1-2) Lipase 4708 H (73-393) U/L Urine Color (Yellow) Urine Appearance (Clear) Urine pH (5.0-8.0) Ur Specific [place] (1.005-1.030) Urine Protein (Negative) Urine Glucose (UA) (Negative) Urine Ketones (Negative) Urine Occult Blood (Negative) Urine Nitrite (Negative) Urine Bilirubin (Negative) Urine Urobilinogen (0.2-1.0) Ur Leukocyte Esterase (Negative) Urine RBC (0-5) /hpf Urine WBC (0-5) /hpf Ur Squamous Epith Cells (0-5) /hpf Amorphous Sediment (NOT SEEN) /hpf Urine Bacteria (FEW) /hpf Urine Mucus (FEW) /hpf Urine HCG, Qual (NEGATIVE) H. pylori IgG Antibody Negative (NEGATIVE) 09/13/18 09/13/18 09/13/18 Range/Units 18:25 18:34 18:34 WBC (3.98-10.04) K/mm3 RBC (3.98-5.22) M/mm3 Hgb (11.2-15.7) gm/L Hct (34.1-44.9) % MCV (79.4-94.8) fl MCH (25.6-32.2) pg MCHC (32.2-35.5) g/dl RDW Std Deviation (36.4-46.3) fL Plt Count (182-369) K/mm3 MPV (9.4-12.3) fl Neut % (Auto) (34.0-71.1) % Lymph % (Auto) (19.3-51.7) % [place] % (Auto) (4.7-12.5) % Eos % (Auto) (0.7-5.8) Baso % (Auto) (0.1-1.2) % Neut # (Auto) (1.56-6.13) K/mm3 Lymph # (Auto) (1.18-3.74) K/mm3 [place] # (Auto) (0.24-0.36) K/mm3 Eos # (Auto) (0.04-0.36) K/mm3 Baso # (Auto) (0.01-0.08) K/mm3 Sodium (136-145) mEq/L Potassium (3.5-5.1) mEq/L Chloride (98-107) mEq/L Carbon Dioxide (21-32) mEq/L Anion Gap (5-15) BUN (7-18) mg/dL Creatinine (0.55-1.02) mg/dL Est Cr Clr Drug Dosing mL/min Estimated GFR (MDRD) (>60) mL/min BUN/Creatinine Ratio (14-18) Glucose (74-106) mg/dL Calcium (8.5-10.1) mg/dL Total Bilirubin (0.2-1.0) mg/dL AST (15-37) U/L ALT (14-59) U/L Alkaline Phosphatase (46-116) U/L C-Reactive Protein 0.5 (<1.0) mg/dL Total Protein (6.4-8.2) g/dl Albumin (3.4-5.0) g/dl Globulin gm/dL Albumin/Globulin Ratio (1-2) Lipase (73-393) U/L Urine Color Light yellow (Yellow) Urine Appearance Slt cloudy H (Clear) Urine pH 7.5 (5.0-8.0) Ur Specific [place] 1.020 (1.005-1.030) Urine Protein Trace H (Negative) Urine Glucose (UA) Negative (Negative) Urine Ketones Trace H (Negative) Urine Occult Blood Negative (Negative) Urine Nitrite Negative (Negative) Urine Bilirubin Negative (Negative) Urine Urobilinogen 0.2 (0.2-1.0) Ur Leukocyte Esterase Negative (Negative) Urine RBC 0-5 (0-5) /hpf Urine WBC 0-5 (0-5) /hpf Ur Squamous Epith Cells 0-5 (0-5) /hpf Amorphous Sediment Moderate H (NOT SEEN) /hpf Urine Bacteria Few (FEW) /hpf Urine Mucus Not seen (FEW) /hpf Urine HCG, Qual Negative (NEGATIVE) H. pylori IgG Antibody (NEGATIVE) Result Diagrams: 09/14/18 06:43 09/14/18 06:45 - Problem List (1) Acute pancreatitis SNOMED Code(s): 691983924 ICD Code: K85.90 - ACUTE PANCREATITIS WITHOUT NECROSIS OR INFECTION, UNSP Status: Acute Priority: High Current Visit: Yes Qualifiers: Pancreatitis type: unspecified pancreatitis type Acute pancreatitis complication: unspecified Qualified Code(s): K85.90 - Acute pancreatitis without necrosis or infection, unspecified Problem List Initiated/Reviewed/Updated: Yes Orders Last 24hrs: Active Orders 24 hr Category Date Time Status Admission Status [Patient Status] [ADT] Routine ADT 09/13/18 20:[address] [RC] ASDIRECTED Care 09/14/18 00:08 Active Nothing Per Oral Diet [DIET] Diet 09/14/18 Breakfast Active Abdomen Pelvis w Cont [CT] Stat Exams 09/13/18 19:51 Taken Acetaminophen [Tylenol] Med 09/13/18 23:58 Active 650 mg PO Q4H PRN Acetaminophen/HYDROcodone [[place] 325-5 MG] Med 09/13/18 23:58 Active 1 tab PO Q4H PRN HYDROmorphone [Dilaudid] Med 09/13/18 23:58 Active 0.25 mg IVPUSH Q2H PRN Ondansetron [Zofran] Med 09/13/18 23:58 Active 4 mg IVPUSH Q8H PRN Sodium Chloride 0.9% [Normal Saline] 1,000 ml Med 09/13/18 23:45 Active IV ASDIRECTED Sodium Chloride 0.9% [Saline Flush] Med 09/13/18 21:12 Active 10 ml FLUSH ONETIME PRN Code Status [Resuscitation Status] Stat Resus Stat 09/13/18 20:14 Ordered Medication Orders Acetaminophen (Tylenol) 650 mg PO Q4H PRN PRN Reason: Pain (mild 1-3) Hydrocodone Bitart/Acetaminophen ([place] 325-5 Mg) 1 tab PO Q4H PRN PRN Reason: Pain (moderate 4-6) Hydromorphone HCl (Dilaudid) 0.25 mg IVPUSH Q2H PRN PRN Reason: Pain (severe 7-10) Sodium Chloride (Normal Saline) 1,000 mls @ 150 mls/hr IV ASDIRECTED JONNIE Last Admin: 09/14/18 05:39 Dose: 150 mls/hr Ondansetron HCl (Zofran) 4 mg IVPUSH Q8H PRN PRN Reason: Nausea/Vomiting Last Admin: 09/14/18 00:34 Dose: 4 mg Sodium Chloride (Saline Flush) 10 ml FLUSH ONETIME PRN PRN Reason: IV Flush Last Admin: 09/13/18 21:58 Dose: 10 ml Assessment/Plan Comment:: I/P: Acute: Pancreatitis -Reports epigastric pain starting 09/13/18 around 8AM -Denies any nausea, vomiting, fever -Abdominal x-ray in ED: Nothing acute, incidental findings -Abdominal CT abdomen pelvis in ED: Pancreatitis with nothing else acute -WBC 10.32-->6.44 -CRP 0.5-->3.5 -Lipase 4708-->3659 -Liver enzymes WNL -Still has gallbladder -Denies ETOH use -Ltd Abdominal US; No gallstones, sludge, or gallbladder wall thickening; 4.3mm gallbladder polyp noted -NPO for now -Q6HR blood glucose checks until off NPO -Ambulate -IV fluids as ordered -Incomplete Haz[place]'s criteria: 0 (no LDH obtained) -Auto Electrical Technician consult -Antiemetics/pain meds as needed -Lipid panel: Triglycerides 40, Total cholesterol 128, LDL 84, HDL 44 -Denies any ETOH consumption in past few months Chronic: Right-sided lymphectomy anxiety mumps tuberculosis avium when 10 months old Plan: Admit to medical floor Other orders as indicated above Home medications as ordered Routine AM labs She is ambulatory so will hold off PT/OT for now Spiritual care consult DVT prophylaxis: None - VTE score of 0 Code status: Full code; PCP: Nataliia Santos PA-C
--- NOTE | 2018-09-14 07:05 | CT ---
CT abdomen and pelvis Technique: Multiple axial sections were obtained from slightly below the dome of the diaphragm inferiorly through the pubic symphysis. Intravenous and oral contrast was utilized. Comparison: Prior abdominal x-ray performed on 09/13/18. No prior CT abdomen or pelvis exam is available. Findings: Small portion of the visualized lung bases are clear. Liver contains no focal abnormality. Spleen appears within normal limits. Gallbladder contains no calcified gallstones. Mild amount of inflammatory change and fluid is seen next to the body and tail of the pancreas compatible with pancreatitis. Antral wall of the stomach as well as several small bowel loops show wall thickening most likely reactive from the pancreatitis. Kidneys show symmetric contrast enhancement without hydronephrosis or mass. Aorta shows no aneurysm. No retroperitoneal adenopathy is seen. Appendix not visualized. No pelvic mass or adenopathy is seen. Small amount of fluid is seen within the pelvis most likely reactive from the pancreas findings. Bone window settings were reviewed which appear within normal limits for the patient's age. Delayed images show contrast within the bladder Impression: 1. Findings compatible with pancreatitis. Mild wall thickening is seen within the stomach antrum as well as adjacent small bowel loops which are felt to be reactive from the adjacent pancreatitis. 2. Other normal findings as noted above. Diagnostic code #3 I agree with preliminary report from [facility], finalized on 09/13/18, 11:45 PM Central Time
--- NOTE | 2018-09-14 09:26 | US ---
Limited abdominal ultrasound: Multiple real-time images of the upper right abdomen were obtained. Comparison: Prior abdominal CT study of 09/13/18. Pancreas shows no discrete abnormality. Inflammatory change seen around the pancreas on recent CT study is not appreciated on this exam which is not unexpected. Fixed abnormality within the gallbladder which is felt compatible with a 4.3 mm polyp. No gallbladder wall thickening is seen. No shadowing gallstones are seen. Right kidney shows no hydronephrosis or mass. No biliary duct dilatation is seen. Inferior vena cava is patent. Portal vein shows normal hepatopedal flow. Measurements: Right kidney length: 9.8 cm Impression: 1. Small gallbladder polyp. 2. Other portions of the right upper quadrant abdominal ultrasound are unremarkable. Diagnostic code #2
[2018-09-14] MEDS: Dextrose 5%-0.9% NaCl 1,000 ML IV SCH ×2 (11:19→17:43)
[2018-09-14] MEDS ORDERED: Acetaminophen/Butalbital/Caffeine 325-50-40 MG Tab PO PRN (13:19)
[2018-09-15] MEDS: Dextrose 5%-0.9% NaCl 1,000 ML IV SCH ×2 (01:19→07:56)
--- NOTE | 2018-09-15 11:23 | PCM.PN ---
- General Info Date of Service: 09/15/18 Admission Dx/Problem (Free Text): Kitty Tam is a 23 yo female who presented to our ED on 09/13/18 with upper abdominal pain which started earlier in the morning around 8 AM. She states was a sudden onset 8-9 out 10 sharp constant epigastric pain. She has never had pain like this before. Denies any anxiety, shortness of breath, nausea, diaphoresis, fever, chills, vomiting, difficulty with eating, pain with eating, diarrhea, chest pain, or dysuria which accompanied the pain. she reports standing, moving, and sputum was negative worse lying down makes it better. She did take meloxicam at home with some relief. Denies any recent changes in eating habits however she did report some diarrhea the night before which she says is due to her sour cream intake. She reports multiple BMs throughout the day but states she usually has about 2-3 per day. She ate okay in the morning but is only been able to take milk and the afternoon. Denies any history of GERD, smoking, or alcohol use. She has never had endoscopy performed. She had appendectomy about 10 years prior and still has her gallbladder. She's not currently and has not had sex in several months. Her last menstrual period was Monday. In the ED temperature was 98F. Pulse 89. Respirations 20. Blood pressure 121 /72. Pulse ox 100%. Labs are obtained: CBC is very mildly elevated at 10.32. Hemoglobin 13.7. Hematocrit 39.5. She is normocytic. Pulse are low at 120, 000. Jaspal's are elevated at 72.8%. Sodium was 139. Potassium 3.8. Chloride 105. Copaxone 26. Anion gap 11.8. BUN is 13. Creatinine 0.7. EGFR greater than 60. Glucose is 97. Calcium 9.2. Bilirubin 0.6. AST is 21, ALT 24, alkaline phosphatase 87. Protein is 7.1. Albumin 4.1. Lipase is high at . H. pylori is negative. CRP is 0.5. HCG is negative. UA is negative however trace protein and moderate amorphus sediment are noted along with trace ketones. Abdominal x-rays obtained and interpreted by Dr. Blanton as " incidental findings. Nothing acute is appreciated. CT of the abdomen and pelvis is obtained and interpreted by [facility] as pancreatitis and nothing else acute seen.she is given 10 mg of Bentyl and a 1 L saline bolus. She carries a history of: right-sided lymphectomy, anxiety, and mumps. 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 she is a full code. Her PCP is Nataliia Mayo PA-C. She is not a smoker. 09/15/18, pain improving, started full liquid diet, lipase 2067. - Review of Systems Systems Review Comment:: General: Reports: No Symptoms. Denies: Fever, Chills, Malaise, Weakness, Fatigue HEENT: Reports: No Symptoms. Denies: Sore Throat Pulmonary: Reports: No Symptoms. Denies: Shortness of Breath, Wheezing, Pleuritic Chest Pain, Cough, Sputum Cardiovascular: Reports: No Symptoms. Denies: Chest Pain, Palpitations, Dyspnea on Exertion, Edema Gastrointestinal: Reports: Abdominal Pain (very very mild epigastric region ). Denies: Constipation, Diarrhea, Hematochezia, Melena, Nausea, Vomiting Genitourinary: Reports: No Symptoms Musculoskeletal: Reports: No Symptoms Skin: Reports: No Symptoms. Denies: Cyanosis Psychiatric: Reports: No Symptoms. Denies: Confusion Neurological: Reports: Headache (mild - reports she normally drinks quite a bit of coffee daily ). Denies: Confusion, Dizziness, Numbness, Pre-Existing Deficit , Seizure, Tingling, Trouble Speaking, Difficulty Walking, Weakness, Gait Disturbance Hematologic/Lymphatic: Reports: No Symptoms Immunologic: Reports: No Symptoms - Patient Data Vitals - Most Recent: Last Vital Signs Temp 98.1 F 09/15/18 08:40 Pulse 75 09/15/18 08:40 Resp 16 09/15/18 08:40 BP 111/64 09/15/18 08:40 Pulse Ox 99 09/15/18 08:40 Weight - Most Recent: 149 lb 12.8 oz I&O - Last 24 Hours: Intake & Output 09/14/18 09/15/18 09/15/18 19:59 03:59 11:59 Intake Total 1940 1852 Output Total 850 Balance 194 1002 Lab Results Last 24 Hours: Laboratory Results - last 24 hr 09/14/18 09/14/18 09/14/18 Range/Units 06:45 11:52 18:59 WBC (3.98-10.04) K/mm3 RBC (3.98-5.22) M/mm3 Hgb (11.2-15.7) gm/L Hct (34.1-44.9) % MCV (79.4-94.8) fl MCH (25.6-32.2) pg MCHC (32.2-35.5) g/dl RDW Std Deviation (36.4-46.3) fL Plt Count (182-369) K/mm3 MPV (9.4-12.3) fl Neut % (Auto) (34.0-71.1) % Lymph % (Auto) (19.3-51.7) % [place] % (Auto) (4.7-12.5) % Eos % (Auto) (0.7-5.8) Baso % (Auto) (0.1-1.2) % Neut # (Auto) (1.56-6.13) K/mm3 Lymph # (Auto) (1.18-3.74) K/mm3 [place] # (Auto) (0.24-0.36) K/mm3 Eos # (Auto) (0.04-0.36) K/mm3 Baso # (Auto) (0.01-0.08) K/mm3 Manual Slide Review Sodium (136-145) mEq/L Potassium (3.5-5.1) mEq/L Chloride (98-107) mEq/L Carbon Dioxide (21-32) mEq/L Anion Gap (5-15) BUN (7-18) mg/dL Creatinine (0.55-1.02) mg/dL Est Cr Clr Drug Dosing mL/min Estimated GFR (MDRD) (>60) mL/min BUN/Creatinine Ratio (14-18) Glucose (74-106) mg/dL POC Glucose 83 88 (70-105) mg/dL Calcium (8.5-10.1) mg/dL Magnesium (1.8-2.4) mg/dl Total Bilirubin (0.2-1.0) mg/dL AST (15-37) U/L ALT (14-59) U/L Alkaline Phosphatase (46-116) U/L C-Reactive Protein (<1.0) mg/dL Total Protein (6.4-8.2) g/dl Albumin (3.4-5.0) g/dl Globulin gm/dL Albumin/Globulin Ratio (1-2) Triglycerides 40 (<150) mg/dL Cholesterol 128 (<200) mg/dL LDL Cholesterol Direct 84 (<100) mg/dL HDL Cholesterol 44.0 (40-59) mg/dL Lipase (73-393) U/L 09/14/18 09/15/18 09/15/18 Range/Units 23:40 05:15 06:25 WBC 4.14 (3.98-10.04) K/mm3 RBC 3.91 L (3.98-5.22) M/mm3 Hgb 11.6 (11.2-15.7) gm/L Hct 32.8 L (34.1-44.9) % MCV 83.9 (79.4-94.8) fl MCH 29.7 (25.6-32.2) pg MCHC 35.4 (32.2-35.5) g/dl RDW Std Deviation 36.5 (36.4-46.3) fL Plt Count 90 L (182-369) K/mm3 MPV 11.6 (9.4-12.3) fl Neut % (Auto) 48.2 (34.0-71.1) % Lymph % (Auto) 43.2 (19.3-51.7) % [place] % (Auto) 7.0 (4.7-12.5) % Eos % (Auto) 1.4 (0.7-5.8) Baso % (Auto) 0.2 (0.1-1.2) % Neut # (Auto) 1.99 (1.56-6.13) K/mm3 Lymph # (Auto) 1.79 (1.18-3.74) K/mm3 [place] # (Auto) 0.29 (0.24-0.36) K/mm3 Eos # (Auto) 0.06 (0.04-0.36) K/mm3 Baso # (Auto) 0.01 (0.01-0.08) K/mm3 Manual Slide Review Abnormal smear Sodium (136-145) mEq/L Potassium (3.5-5.1) mEq/L Chloride (98-107) mEq/L Carbon Dioxide (21-32) mEq/L Anion Gap (5-15) BUN (7-18) mg/dL Creatinine (0.55-1.02) mg/dL Est Cr Clr Drug Dosing mL/min Estimated GFR (MDRD) (>60) mL/min BUN/Creatinine Ratio (14-18) Glucose (74-106) mg/dL POC Glucose 100 110 H (70-105) mg/dL Calcium (8.5-10.1) mg/dL Magnesium (1.8-2.4) mg/dl Total Bilirubin (0.2-1.0) mg/dL AST (15-37) U/L ALT (14-59) U/L Alkaline Phosphatase (46-116) U/L C-Reactive Protein (<1.0) mg/dL Total Protein (6.4-8.2) g/dl Albumin (3.4-5.0) g/dl Globulin gm/dL Albumin/Globulin Ratio (1-2) Triglycerides (<150) mg/dL Cholesterol (<200) mg/dL LDL Cholesterol Direct (<100) mg/dL HDL Cholesterol (40-59) mg/dL Lipase (73-393) U/L 09/15/18 Range/Units 06:25 WBC (3.98-10.04) K/mm3 RBC (3.98-5.22) M/mm3 Hgb (11.2-15.7) gm/L Hct (34.1-44.9) % MCV (79.4-94.8) fl MCH (25.6-32.2) pg MCHC (32.2-35.5) g/dl RDW Std Deviation (36.4-46.3) fL Plt Count (182-369) K/mm3 MPV (9.4-12.3) fl Neut % (Auto) (34.0-71.1) % Lymph % (Auto) (19.3-51.7) % [place] % (Auto) (4.7-12.5) % Eos % (Auto) (0.7-5.8) Baso % (Auto) (0.1-1.2) % Neut # (Auto) (1.56-6.13) K/mm3 Lymph # (Auto) (1.18-3.74) K/mm3 [place] # (Auto) (0.24-0.36) K/mm3 Eos # (Auto) (0.04-0.36) K/mm3 Baso # (Auto) (0.01-0.08) K/mm3 Manual Slide Review Sodium 142 (136-145) mEq/L Potassium 3.9 (3.5-5.1) mEq/L Chloride 110 H (98-107) mEq/L Carbon Dioxide 23 (21-32) mEq/L Anion Gap 12.9 (5-15) BUN 8 (7-18) mg/dL Creatinine 0.7 (0.55-1.02) mg/dL Est Cr Clr Drug Dosing 131.78 mL/min Estimated GFR (MDRD) > 60 (>60) mL/min BUN/Creatinine Ratio 11.4 L (14-18) Glucose 116 H (74-106) mg/dL POC Glucose (70-105) mg/dL Calcium 8.2 L (8.5-10.1) mg/dL Magnesium 1.8 (1.8-2.4) mg/dl Total Bilirubin 0.5 (0.2-1.0) mg/dL AST 12 L (15-37) U/L ALT 15 (14-59) U/L Alkaline Phosphatase 64 (46-116) U/L C-Reactive Protein 2.3 H* (<1.0) mg/dL Total Protein 5.9 L (6.4-8.2) g/dl Albumin 3.2 L (3.4-5.0) g/dl Globulin 2.7 gm/dL Albumin/Globulin Ratio 1.2 (1-2) Triglycerides (<150) mg/dL Cholesterol (<200) mg/dL LDL Cholesterol Direct (<100) mg/dL HDL Cholesterol (40-59) mg/dL Lipase 2068 H (73-393) U/L Med Orders - Current: Current Medications Acetaminophen (Tylenol) 650 mg PO Q4H PRN PRN Reason: Pain (mild 1-3) Acetaminophen/Butalbital/Caffeine (Fioricet 325-50-40 Mg) 1 tab PO Q6H PRN PRN Reason: Headache Last Admin: 09/14/18 13:33 Dose: 1 tab Hydrocodone Bitart/Acetaminophen ([place] 325-5 Mg) 1 tab PO Q4H PRN PRN Reason: Pain (moderate 4-6) Hydromorphone HCl (Dilaudid) 0.25 mg IVPUSH Q2H PRN PRN Reason: Pain (severe 7-10) Dextrose/Sodium Chloride (Dextrose 5%-Normal Saline) 1,000 mls @ 150 mls/hr IV [facility] Last Admin: 09/15/18 07:56 Dose: 150 mls/hr Ondansetron HCl (Zofran) 4 mg IVPUSH Q8H PRN PRN Reason: Nausea/Vomiting Last Admin: 09/14/18 00:34 Dose: 4 mg Sodium Chloride (Saline Flush) 10 ml FLUSH ONETIME PRN PRN Reason: IV Flush Last Admin: 09/13/18 21:58 Dose: 10 ml Discontinued Medications Diatrizoate Meglum/Diatrizoate Sod (Gastrografin 37%) 90 ml PO ONETIME ONE Stop: 09/13/18 21:13 Last Admin: 09/13/18 21:57 Dose: 90 ml Dicyclomine HCl (Bentyl) 10 mg PO ONETIME ONE Stop: 09/13/18 18:09 Last Admin: 09/13/18 18:18 Dose: 10 mg Sodium Chloride (Normal Saline) 1,000 mls @ 999 mls/hr IV ONETIME ONE Stop: 09/13/18 20:54 Last Admin: 09/13/18 20:06 Dose: 999 mls/hr Sodium Chloride (Normal Saline) 1,000 mls [facility] Last Admin: 09/14/18 05:39 Dose: 150 mls/hr Iohexol (Omnipaque-300) 100 ml IVPUSH ONETIME ONE Stop: 09/13/18 21:12 Last Admin: 09/13/18 21:57 Dose: 100 ml - Exam Physical Findings Comments:: General: Alert, Oriented, Cooperative HEENT: Conjunctiva Clear, EACs Clear, EOMI, Hearing Intact, Mucosa Moist & [place] , Nares Patent, Posterior Pharynx Clear, PERRLA Neck: Supple, Trachea Midline Lungs: Clear to Auscultation, Normal Respiratory Effort Cardiovascular: Regular Rate, Regular Rhythm GI/Abdominal Exam: Soft, No Distention, No Abnormal Bruit, Tender (mild epigastric tenderness on palpitation ), Abnormal Bowel Sounds (hyperactive ) (Female) Exam: Deferred Rectal (Female) Exam: Deferred Back Exam: Normal Inspection, Full Range of Motion Extremities: Normal Inspection, Normal Range of Motion, Non-Tender, No Pedal Edema, Normal Capillary Refill Peripheral Pulses: 2+: Radial (L), Radial (R), Dorsalis Pedis (L), Dorsalis Pedis (R) Skin: Warm, Dry, Intact Neurological: Cranial Nerves Intact (grossly ) Neuro Extensive - Mental Status: Alert, Oriented x3, Normal Mood/Affect - Problem List Review Problem List Initiated/Reviewed/Updated: Yes - My Orders Last 24 Hours: My Active Orders 09/15/18 Breakfast Full Liquid Diet [DIET] - Plan Plan:: I/P: Acute: Pancreatitis -Reports epigastric pain starting 09/13/18 around 8AM -Denies any nausea, vomiting, fever -Abdominal x-ray in ED: Nothing acute, incidental findings -Abdominal CT abdomen pelvis in ED: Pancreatitis with nothing else acute -WBC 10.32-->6.44 -CRP 0.5-->3.5 -Lipase 4708-->3659 -Liver enzymes WNL -Still has gallbladder -Denies ETOH use -Ltd Abdominal US; No gallstones, sludge, or gallbladder wall thickening; 4.3mm gallbladder polyp noted -NPO for now -Q6HR blood glucose checks until off NPO -Ambulate -IV fluids as ordered -Incomplete Beltran's criteria: 0 (no LDH obtained) -Cctv Technician consult -Antiemetics/pain meds as needed -Lipid panel: Triglycerides 40, Total cholesterol 128, LDL 84, HDL 44 -Denies any ETOH consumption in past few months Chronic: Right-sided lymphectomy anxiety mumps tuberculosis avium when 10 months old Plan: Admit to medical floor Other orders as indicated above Home medications as ordered Routine AM labs She is ambulatory so will hold off PT/OT for now Spiritual care consult DVT prophylaxis: None - VTE score of 0 Code status: Full code; PCP: Nataliia Santos PA-C
[2018-09-15 15:14] VITALS: BP 114/72
--- NOTE | 2018-09-15 16:35 | PCM.DCSUM1 ---
Discharge Summary - Hospital Course HPI Initial Comments: Kitty Tam is a 23 yo female who presented to our ED on 09/13/18 with upper abdominal pain which started earlier in the morning around 8 AM. She states was a sudden onset 8-9 out 10 sharp constant epigastric pain. She has never had pain like this before. Denies any anxiety, shortness of breath, nausea, diaphoresis, fever, chills, vomiting, difficulty with eating, pain with eating, diarrhea, chest pain, or dysuria which accompanied the pain. she reports standing, moving, and sputum was negative worse lying down makes it better. She did take meloxicam at home with some relief. Denies any recent changes in eating habits however she did report some diarrhea the night before which she says is due to her sour cream intake. She reports multiple BMs throughout the day but states she usually has about 2-3 per day. She ate okay in the morning but is only been able to take milk and the afternoon. Denies any history of GERD, smoking, or alcohol use. She has never had endoscopy performed. She had appendectomy about 10 years prior and still has her gallbladder. She's not currently and has not had sex in several months. Her last menstrual period was Monday. In the ED temperature was 98F. Pulse 89. Respirations 20. Blood pressure 121 /72. Pulse ox 100%. Labs are obtained: CBC is very mildly elevated at 10.32. Hemoglobin 13.7. Hematocrit 39.5. She is normocytic. Pulse are low at 120, 000. Jaspal's are elevated at 72.8%. Sodium was 139. Potassium 3.8. Chloride 105. Copaxone 26. Anion gap 11.8. BUN is 13. Creatinine 0.7. EGFR greater than 60. Glucose is 97. Calcium 9.2. Bilirubin 0.6. AST is 21, ALT 24, alkaline phosphatase 87. Protein is 7.1. Albumin 4.1. Lipase is high at . H. pylori is negative. CRP is 0.5. HCG is negative. UA is negative however trace protein and moderate amorphus sediment are noted along with trace ketones. Abdominal x-rays obtained and interpreted by Dr. Blanton as " incidental findings. Nothing acute is appreciated. CT of the abdomen and pelvis is obtained and interpreted by Adal[facility] as pancreatitis and nothing else acute seen.she is given 10 mg of Bentyl and a 1 L saline bolus. She carries a history of: right-sided lymphectomy, anxiety, and mumps. 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 she is a full code. Her PCP is Nataliia Mayo PA-C. She is not a smoker. 09/15/18, pain improving, started full liquid diet, lipase 2067.Discharged home in good condition. Diagnosis: Stroke: No - Discharge Data Discharge Date: 09/15/18 Discharge Disposition: Home, Self-Care 01 Condition: Good - Patient Summary/Data Consults: Consultations 09/14/18 06:32 Consult to Spiritual Care [CONS] Routine 09/14/18 08:13 Consult to Safety Supervisor [CONS] Routine - Discharge Plan *PRESCRIPTION DRUG MONITORING PROGRAM REVIEWED*: Not Applicable *COPY OF PRESCRIPTION DRUG MONITORING REPORT IN PATIENT TERELL: Not Applicable Forms: ED Department Discharge Referrals: Nataliia Santos PA-C [Primary Care Provider] - - Discharge Summary/Plan Comment DC Time >30 min.: Yes - Patient Data Vitals - Most Recent: Last Vital Signs Temp 97.5 F 09/15/18 14:40 Pulse 90 09/15/18 14:40 Resp 16 09/15/18 14:40 BP 114/72 09/15/18 14:40 Pulse Ox 99 09/15/18 14:40 Weight - Most Recent: 149 lb 12.8 oz I&O - Last 24 hours: Intake & Output 09/15/18 09/15/18 09/15/18 03:59 11:59 19:59 Intake Total 1852 920 Output Total 850 Balance 1002 920 Lab Results - Last 24 hrs: Laboratory Results - last 24 hr 09/14/18 09/14/18 09/15/18 Range/Units 18:59 23:40 05:15 WBC (3.98-10.04) K/mm3 RBC (3.98-5.22) M/mm3 Hgb (11.2-15.7) gm/L Hct (34.1-44.9) % MCV (79.4-94.8) fl MCH (25.6-32.2) pg MCHC (32.2-35.5) g/dl RDW Std Deviation (36.4-46.3) fL Plt Count (182-369) K/mm3 MPV (9.4-12.3) fl Neut % (Auto) (34.0-71.1) % Lymph % (Auto) (19.3-51.7) % [place] % (Auto) (4.7-12.5) % Eos % (Auto) (0.7-5.8) Baso % (Auto) (0.1-1.2) % Neut # (Auto) (1.56-6.13) K/mm3 Lymph # (Auto) (1.18-3.74) K/mm3 [place] # (Auto) (0.24-0.36) K/mm3 Eos # (Auto) (0.04-0.36) K/mm3 Baso # (Auto) (0.01-0.08) K/mm3 Manual Slide Review Sodium (136-145) mEq/L Potassium (3.5-5.1) mEq/L Chloride (98-107) mEq/L Carbon Dioxide (21-32) mEq/L Anion Gap (5-15) BUN (7-18) mg/dL Creatinine (0.55-1.02) mg/dL Est Cr Clr Drug Dosing mL/min Estimated GFR (MDRD) (>60) mL/min BUN/Creatinine Ratio (14-18) Glucose (74-106) mg/dL POC Glucose 88 100 110 H (70-105) mg/dL Calcium (8.5-10.1) mg/dL Magnesium (1.8-2.4) mg/dl Total Bilirubin (0.2-1.0) mg/dL AST (15-37) U/L ALT (14-59) U/L Alkaline Phosphatase (46-116) U/L C-Reactive Protein (<1.0) mg/dL Total Protein (6.4-8.2) g/dl Albumin (3.4-5.0) g/dl Globulin gm/dL Albumin/Globulin Ratio (1-2) Lipase (73-393) U/L 09/15/18 09/15/18 Range/Units 06:25 06:25 WBC 4.14 (3.98-10.04) K/mm3 RBC 3.91 L (3.98-5.22) M/mm3 Hgb 11.6 (11.2-15.7) gm/L Hct 32.8 L (34.1-44.9) % MCV 83.9 (79.4-94.8) fl MCH 29.7 (25.6-32.2) pg MCHC 35.4 (32.2-35.5) g/dl RDW Std Deviation 36.5 (36.4-46.3) fL Plt Count 90 L (182-369) K/mm3 MPV 11.6 (9.4-12.3) fl Neut % (Auto) 48.2 (34.0-71.1) % Lymph % (Auto) 43.2 (19.3-51.7) % [place] % (Auto) 7.0 (4.7-12.5) % Eos % (Auto) 1.4 (0.7-5.8) Baso % (Auto) 0.2 (0.1-1.2) % Neut # (Auto) 1.99 (1.56-6.13) K/mm3 Lymph # (Auto) 1.79 (1.18-3.74) K/mm3 [place] # (Auto) 0.29 (0.24-0.36) K/mm3 Eos # (Auto) 0.06 (0.04-0.36) K/mm3 Baso # (Auto) 0.01 (0.01-0.08) K/mm3 Manual Slide Review Abnormal smear Sodium 142 (136-145) mEq/L Potassium 3.9 (3.5-5.1) mEq/L Chloride 110 H (98-107) mEq/L Carbon Dioxide 23 (21-32) mEq/L Anion Gap 12.9 (5-15) BUN 8 (7-18) mg/dL Creatinine 0.7 (0.55-1.02) mg/dL Est Cr Clr Drug Dosing 131.78 mL/min Estimated GFR (MDRD) > 60 (>60) mL/min BUN/Creatinine Ratio 11.4 L (14-18) Glucose 116 H (74-106) mg/dL POC Glucose (70-105) mg/dL Calcium 8.2 L (8.5-10.1) mg/dL Magnesium 1.8 (1.8-2.4) mg/dl Total Bilirubin 0.5 (0.2-1.0) mg/dL AST 12 L (15-37) U/L ALT 15 (14-59) U/L Alkaline Phosphatase 64 (46-116) U/L C-Reactive Protein 2.3 H* (<1.0) mg/dL Total Protein 5.9 L (6.4-8.2) g/dl Albumin 3.2 L (3.4-5.0) g/dl Globulin 2.7 gm/dL Albumin/Globulin Ratio 1.2 (1-2) Lipase 2068 H (73-393) U/L Med Orders - Current: Current Medications Acetaminophen (Tylenol) 650 mg PO Q4H PRN PRN Reason: Pain (mild 1-3) Acetaminophen/Butalbital/Caffeine (Fioricet 325-50-40 Mg) 1 tab PO Q6H PRN PRN Reason: Headache Last Admin: 09/14/18 13:33 Dose: 1 tab Hydrocodone Bitart/Acetaminophen ([place] 325-5 Mg) 1 tab PO Q4H PRN PRN Reason: Pain (moderate 4-6) Fluticasone Propionate (Flonase) 0 gm RONY DAILY JONNIE Hydromorphone HCl (Dilaudid) 0.25 mg IVPUSH Q2H PRN PRN Reason: Pain (severe 7-10) Multivitamins (Thera) 1 each PO DAILY JONNIE Ondansetron HCl (Zofran) 4 mg IVPUSH Q8H PRN PRN Reason: Nausea/Vomiting Last Admin: 09/14/18 00:34 Dose: 4 mg Sodium Chloride (Saline Flush) 10 ml FLUSH ONETIME PRN PRN Reason: IV Flush Last Admin: 09/13/18 21:58 Dose: 10 ml Discontinued Medications Diatrizoate Meglum/Diatrizoate Sod (Gastrografin 37%) 90 ml PO ONETIME ONE Stop: 09/13/18 21:13 Last Admin: 09/13/18 21:57 Dose: 90 ml Dicyclomine HCl (Bentyl) 10 mg PO ONETIME ONE Stop: 09/13/18 18:09 Last Admin: 09/13/18 18:18 Dose: 10 mg Sodium Chloride (Normal Saline) 1,000 mls @ 999 mls/hr IV ONETIME ONE Stop: 09/13/18 20:54 Last Admin: 09/13/18 20:06 Dose: 999 mls/hr Sodium Chloride (Normal Saline) 1,000 mls @ 150 mls/hr IV ASDIRECTED [facility] Last Admin: 09/14/18 05:39 Dose: 150 mls/hr Dextrose/Sodium Chloride (Dextrose 5%-Normal Saline) 1,000 mls @ 150 mls/hr IV ASDIRECTED [facility] Last Admin: 09/15/18 07:56 Dose: 150 mls/hr Iohexol (Omnipaque-300) 100 ml IVPUSH ONETIME ONE Stop: 09/13/18 21:12 Last Admin: 09/13/18 21:57 Dose: 100 ml - Exam Physical Findings Comments:: General: Alert, Oriented, Cooperative HEENT: Conjunctiva Clear, EACs Clear, EOMI, Hearing Intact, Mucosa Moist & [place] , Nares Patent, Posterior Pharynx Clear, PERRLA Neck: Supple, Trachea Midline Lungs: Clear to Auscultation, Normal Respiratory Effort Cardiovascular: Regular Rate, Regular Rhythm GI/Abdominal Exam: Soft, No Distention, No Abnormal Bruit, Tender (mild epigastric tenderness on palpitation ), Abnormal Bowel Sounds (hyperactive ) (Female) Exam: Deferred Rectal (Female) Exam: Deferred Back Exam: Normal Inspection, Full Range of Motion Extremities: Normal Inspection, Normal Range of Motion, Non-Tender, No Pedal Edema, Normal Capillary Refill Peripheral Pulses: 2+: Radial (L), Radial (R), Dorsalis Pedis (L), Dorsalis Pedis (R) Skin: Warm, Dry, Intact Neurological: Cranial Nerves Intact (grossly ) Neuro Extensive - Mental Status: Alert, Oriented x3, Normal Mood/Affect
[2018-09-16] MEDS ORDERED: Fluticasone Propionate Nasal Spray 16 GM Bottle NAS SCH (09:00)
[2018-09-16] MEDS ORDERED: Multivitamins,Therapeutic Tab PO SCH (09:00)
== END 2018-09-15 17:10 | disposition home or self-care (01) ==
LOC: SUPCPDRO 17:30 → JD.ED 17:30 → JD.MS 20:12
PROVIDERS: ADMIT Internal Medicine; ATTEND Internal Medicine
DX: K85.90 Acute pancreatitis without necrosis or infection, unspecified (principal); F41.9 Anxiety disorder, unspecified; B26.9 Mumps without complication; Z88.0 Allergy status to penicillin; Z91.040 Latex allergy status; Z91.018 Allergy to other foods; Z91.048 Other nonmedicinal substance allergy status
CPT/HCPCS: 36415; 74018; 74177; 76705; 80053; 80061; 81001; 81025; 82962; 83690; 83735; 85025; 86140; 86677; 99285; A9270; J2405; J7040; J7042; Q9963; Q9967